=== PATIENT | female | born 1990 | race Two or more races ===

== ENCOUNTER 2019-08-17 10:04 | Inpatient (IN) ==
[2019-08-17] MEDS ORDERED: D5LR 1L W PITOCIN 10 UNITS/L 10 UNITS/1,000 ML BAG IV PRN (10:10)
[2019-08-17] MEDS ORDERED: PHENERGAN INJ 25 MG IM PRN ×2 (10:10→13:01)
[2019-08-17] MEDS ORDERED: REGLAN INJ 10 MG VIAL IVP PRN (10:10)
[2019-08-17] MEDS ORDERED: NUBAIN INJ 200 MG VIAL MULTIDOSE IVP PRN (10:10)
[2019-08-17] MEDS ORDERED: PITOCIN ONE (10:17)
[2019-08-17] MEDS ORDERED: D5 1/2 NS 1L W PITOCIN 20 UNITS/L 20 UNITS/1,000 ML BAG IV ONE (10:17)
[2019-08-17 10:46] LABS: BLOOD UREA NITROGEN 8 mg/dL (7-18); CALCIUM 8.2 mg/dL (8.5-10.1); CARBON DIOXIDE 20.4 mmol/L (21-32); CHLORIDE 104 mmol/L (98-107); CREATININE 0.53 mg/dL (0.55-1.02); SODIUM 137 mmol/L (136-145); eGFR NON BLACK RACES > 60 (>60)
[2019-08-17 10:54] LABS: BILIRUBIN,URINE NEGATIVE (NEGATIVE); BLOOD/HEMOGLOBIN,URINE 5+ (NEGATIVE); GLUCOSE, URINE NEGATIVE (NEGATIVE); KETONES,URINE 2+ (NEGATIVE); LEUKOCYTE ESTERASE ,URINE 3+ (NEGATIVE); NITRITES,URINE NEGATIVE (NEGATIVE); PROTEIN,URINE 2+ (NEGATIVE); UROBILINOGEN,URINE NORMAL (NORMAL)
[2019-08-17 10:58] LABS: APPEARANCE,URINE CLOUDY (CLEAR); BACTERIA,URINE NEGATIVE /HPF (NEGATIVE); COLOR,URINE YELLOW (YELLOW); MUCUS,URINE FEW /HPF (NEGATIVE); SQUAMOUS EPITHELIAL CELL,UR MODERATE /HPF (NEGATIVE)
[2019-08-17] MEDS ORDERED: D5 1/2 NS 1000 ML 1,000 ML IV SCH (11:00)
[2019-08-17 11:09] LABS: BASOPHILS % (AUTO) 0.5 % (0.2-1.0); EOSINOPHILS % (AUTO) 0.2 % (0.9-2.9); HEMATOCRIT 35.4 % (36.0-47.0); HEMOGLOBIN 11.8 g/dL (12.0-16.0); LYMPHOCYTES # (AUTO) 1.9 X10^3/uL (1.3-2.9); LYMPHOCYTES % (AUTO) 19.5 % (21.0-51.0); MEAN CORPUSCULAR HEMOGLOBIN 26.4 pg (27.0-34.0); MEAN CORPUSCULAR HGB CONC 33.3 g/dL (33.0-35.0); MEAN CORPUSCULAR VOLUME 79.3 fL (80.0-100.0); MEAN PLATELET VOLUME 9.5 fL (7.4-11.0); MONOCYTES # (AUTO) 0.5 x10^3/uL (0.3-0.8); MONOCYTES % (AUTO) 4.9 % (0.0-13.0); NEUTROPHILS # (AUTO) 7.1 x10^3/uL (2.2-4.8); NEUTROPHILS % (AUTO) 74.9 % (42.0-75.0); PLATELET COUNT 308 X10^3/uL (150.0-450.0); RED BLOOD COUNT 4.47 X10^6/uL (3.5-5.4); WHITE BLOOD COUNT 9.5 X10^3/uL (3.6-10.0)
[2019-08-17] MEDS: D5 1/2 NS 1000 ML 1,000 ML with PITOCIN 20 UNITS IV SCH ×2 (12:36)
[2019-08-17] MEDS ORDERED: XYLOCAINE 1 % (PLAIN) ONE (12:37)
[2019-08-17] MEDS ORDERED: MOTRIN TAB 800 MG PO PRN (13:01)
[2019-08-17] MEDS ORDERED: DERMOPLAST SPRAY TOP PRN (19:38)
[2019-08-17] MEDS ORDERED: MILK OF MAGNESIA PO PRN (19:38)
[2019-08-17] MEDS ORDERED: AMBIEN PO PRN (19:38)
[2019-08-18] MEDS: D5 1/2 NS 1000 ML 1,000 ML with PITOCIN 20 UNITS IV SCH ×4 (00:23→05:19)
[2019-08-18 06:43] LABS: HEMATOCRIT 31.6 % (36.0-47.0); HEMOGLOBIN 10.6 g/dL (12.0-16.0)
[2019-08-18] MEDS ORDERED: PRENATAL PLUS PO SCH (09:00)
[2019-08-18 13:43] VITALS: BP 119/72
== END 2019-08-18 15:25 | disposition home or self-care (01) | DRG 807 ==
LOC: LD 10:04 → MED/SURG 13:51
PROVIDERS: ADMIT Obstetrics & Gynecology Obstetrics; ATTEND Obstetrics & Gynecology Obstetrics
DX: Z37.0 Single live birth; Z3A.38 38 weeks gestation of pregnancy; O70.1 Second degree perineal laceration during delivery
CPT/HCPCS: 36415; 59409; 80048; 81001; 85014; 85018; 85025; 86592; 86850; 86900; 86901; A4216; A4222; S0197; J2590; S5010